=== PATIENT | female | born 1990 | race Caucasian/White ===

== ENCOUNTER 2017-11-28 08:08 | Emergency (ER) | payer SELFPAY ==
[2017-11-28 09:26] LABS: ABSOLUTE EOSINOPHILS # (AUTO) 0.1 10^3/uL (0.0-0.6); ABSOLUTE LYMPHOCYTES (AUTO) 2.1 10^3/uL (0.5-4.7); ABSOLUTE MONOCYTES (AUTO) 0.5 10^3/uL (0.1-1.4); ABSOLUTE NEUT (AUTO) 8.6 10^3/uL (1.7-8.2); BASOPHILS % (AUTO) 0.2 % (0-2); EOSINOPHILS % (AUTO) 0.7 % (0-6); HEMATOCRIT 37.9 % (36.0-47.0); HEMOGLOBIN 12.9 g/dL (12.0-15.5); LYMPHOCYTES % (AUTO) 18.4 % (13-45); MEAN CORPUSCULAR HEMOGLOBIN 30.8 pg (27.0-33.4); MEAN CORPUSCULAR VOLUME 91 fl (80-97); MONOCYTES % (AUTO) 4.8 % (3-13); PLATELET COUNT 203 10^3/uL (150-450); RED BLOOD COUNT 4.19 10^6/uL (3.72-5.28); RED CELL DISTRIBUTION WIDTH 13.3 % (11.5-14.0); SEGMENTED NEUTROPHILS % (AUTO) 75.9 % (42-78); TOTAL CELLS COUNTED % (AUTO) 100 %; WHITE BLOOD COUNT 11.3 10^3/uL (4.0-10.5)
[2017-11-28 09:31] LABS: INTERNATIONAL RATION (INR) 1.03; PROTHROMBIN TIME 14.1 SEC (11.4-15.4)
[2017-11-28 09:41] LABS: ALANINE AMINOTRANSFERASE 34 U/L (9-52); ALBUMIN 4.4 g/dL (3.5-5.0); ALKALINE PHOSPHATASE 50 U/L (38-126); ANION GAP 9 (5-19); ASPARTATE AMINO TRANSFERASE 24 U/L (14-36); BILIRUBIN,DIRECT 0.4 mg/dL (0.0-0.4); BILIRUBIN,TOTAL 0.4 mg/dL (0.2-1.3); BLOOD UREA NITROGEN 10 mg/dL (7-20); CALCIUM 9.6 mg/dL (8.4-10.2); CARBON DIOXIDE 25 mmol/L (22-30); CHLORIDE 107 mmol/L (98-107); GLUCOSE 85 mg/dL (75-110); POTASSIUM 3.9 mmol/L (3.6-5.0); SODIUM 141.4 mmol/L (137-145); TOTAL PROTEIN 7.1 g/dL (6.3-8.2)
[2017-11-28] MEDS ORDERED: ONDANSETRON HCL INJ/PF 4 MG/2 ML SDV IV ONE (09:45)
[2017-11-28] MEDS ORDERED: MORPHINE SULFATE 10 MG/ML INJ IV ONE (09:45)
--- NOTE | 2017-11-28 09:45 | ER Document Report ---
ED GI/ - General Mode of Arrival: Ambulatory Information source: Patient TRAVEL OUTSIDE OF THE [place] IN LAST 30 DAYS: No <NATI ENCINAS - Last Filed: 11/28/17 10:05> <LOUIS HOUSE - Last Filed: 11/28/17 12:34> - General Chief Complaint: Vag Bleeding, +preg <12wks Stated Complaint: VAGINAL BLEEDING Time Seen by Provider: 11/28/17 09:34 Notes: 27-year-old female that presents to the emergency department today with complaints of lower abdominal cramping that began this morning. Patient states her last menstrual period was on September 15 and she is normally very regular. Patient states she has 5 children at home and has had multiple miscarriages in the past. Patient states today when giving a urine sample she passed a large clot. Patient states the blood was brown yesterday but today it is red. Patient states her pain today is similar to when she had an ectopic which is questionable as she states that the ectopic was treated by a D&C. ( NATI ENCINAS) - Related Data Allergies/Adverse Reactions: butorphanol tartrate [From Stadol] Allergy (Severe, Verified 11/28/17 08:09) SOB,itch mushrooms Allergy (Intermediate, Uncoded 11/28/17 08:09) itch/red hives Past Medical History - General Information source: Patient Last Menstrual Period: 09/15/17 - Social History Smoking Status: Current Every Day Smoker Cigarette use (# per day): Yes Frequency of alcohol use: None Drug Abuse: None Family History: Reviewed & Not Pertinent Patient has suicidal ideation: No Patient has homicidal ideation: No - Past Medical History Cardiac Medical History: Reports: Hx Heart Murmur - poss yrs ago with prev preg Neurological Medical History: Reports: Hx Migraine Renal/ Medical History: Reports: Hx Ectopic , Hx Ovarian Cysts - in past GI Medical History: Reports: Hx Gastroesophageal Reflux Disease Musculoskeletal Medical History: Reports Hx Musculoskeletal Trauma Psychiatric Medical History: Reports: Hx Anxiety, Hx Post Traumatic Stress Disorder Past Surgical History: Reports: Hx Section - Immunizations Immunizations up to date: Yes Hx Diphtheria, Pertussis, Tetanus Vaccination: Yes <NATI ENCINAS - Last Filed: 11/28/17 10:05> Review of Systems - Review of Systems Constitutional: No symptoms reported EENT: No symptoms reported Cardiovascular: No symptoms reported Respiratory: No symptoms reported Gastrointestinal: See HPI, Abdominal pain - cramping Genitourinary: No symptoms reported Female Genitourinary: See HPI, Musculoskeletal: No symptoms reported Skin: No symptoms reported Hematologic/Lymphatic: No symptoms reported Neurological/Psychological: No symptoms reported -: Yes All other systems reviewed and negative <NATI ENCINAS - Last Filed: 11/28/17 10:05> Physical Exam <NATI ENCINAS - Last Filed: 11/28/17 10:05> <LOUIS HOUSE - Last Filed: 11/28/17 12:34> - Vital signs Vitals: Temp Pulse Resp BP Pulse Ox 98.1 F 77 16 116/67 99 11/28/17 08:12 11/28/17 08:12 11/28/17 08:12 11/28/17 08:12 11/28/17 08:12 - Notes Notes: Physical Exam: General: Alert, appears uncomfortable. HEENT: Normocephalic. Atraumatic. PERRL. Extraocular movements intact. Oropharynx clear. Neck: Supple. Non-tender. Respiratory: No respiratory distress. Coarse breath sounds with diffuse rhonchi consistent with heavy smoking history. Cardiovascular: Regular rate and rhythm. Abdominal: LLQ and suprapubic tenderness with palpation with positive guarding. No distension. Normal Bowel Sounds. Back: Non-tender. No deformity or step off. Extremities: Moves all four extremities. Upper extremities: Normal inspection. Normal ROM. Lower extremities: Normal inspection. No edema. Normal ROM. Neurological: Normal cognition. AAOx4. Normal speech. Psychological: Normal affect. Normal Mood. Skin: Warm. Dry. Normal color. ([place]) Course - Laboratory Result Diagrams: 11/28/17 09:02 11/28/17 09:02 <ANGELITA ENCINASON - Last Filed: 11/28/17 10:05> - Laboratory Result Diagrams: 11/28/17 09:02 11/28/17 09:02 - Diagnostic Test Radiology reviewed: Reports reviewed - Ultrasound shows a 6 week 2 day IUP in the lower uterine segment without cardiac activity, suspicious for miscarriage in progress. <L[facility] HOUSE - Last Filed: 11/28/17 12:34> - Vital Signs Vital signs: Temp Pulse Resp BP Pulse Ox 98.1 F 77 17 101/67 97 11/28/17 08:12 11/28/17 08:12 11/28/17 10:46 11/28/17 10:46 11/28/17 10:46 - Laboratory Laboratory results interpreted by me: 11/28/17 11/28/17 09:02 09:02 WBC 11.3 H Absolute Neutrophils 8.6 H Beta HCG, Quant 5914.60 H Discharge <NATI ENCINAS - Last Filed: 11/28/17 10:05> <[facility] - Last Filed: 11/28/17 12:34> - Discharge Clinical Impression: Inevitable complete miscarriage without complication Condition: Stable Disposition: HOME, SELF-CARE Additional Instructions: Miscarriage Impending You have been evaluated for a possible miscarriage. At this time, it appears that the fetus has stopped growing. A miscarriage occurs when the fetus is abnormal. There is no medicine or treatment to prevent it. If bleeding is not severe, and if your pain can be controlled with medicine, you could complete the miscarriage at home. If that's not practical, or if the miscarriage doesn't progress spontaneously, we will arrange for a D&C procedure. You should rest in bed. Do not douche or have sex for at least a week, or until OK'd by the doctor. If you believe you've passed the fetus, collect it in a zip-lock plastic bag. Be sure to follow up with your doctor. Call the doctor or return for re- examination if there is an increase in bleeding or cramping, extreme weakness, fainting, fever, or passage of tissue. Drink plenty of fluids and rest. Take ibuprofen for pain. Take the Tylenol with hydrocodone tablets that are dispensed for the pain if ibuprofen does not adequately control your pain. Call [facility] in the morning for a follow-up appointment. RETURN TO THE EMERGENCY ROOM IF ANY NEW OR WORSENING SYMPTOMS. Referrals: [facility] [Provider Group] - Follow up tomorrow Reginaibe Attestation: 11/28/17 12:31 I personally performed the services described in the documentation, reviewed and edited the documentation which was dictated to the scribe in my presence, and it accurately records my words and actions. (LOU[facility] HOUSE) Scribe Documentation - Scribe Written by Maria Del Carmen:: Maria Del Carmen Hooker, 11/28/2017 0958 acting as scribe for :: José <NATI ENCINAS - Last Filed: 11/28/17 10:05>
--- NOTE | 2017-11-28 11:59 | RADIOLOGY REPORT (SQ) ---
EXAM DESCRIPTION: U/S OB TRANSVAGINAL W/O DOP COMPLETED DATE/TIME: 11/28/2017 11:38 am REASON FOR STUDY: Severe pelvic cramps, BRB w/ clots COMPARISON: None. TECHNIQUE: Transvaginal static and realtime grayscale images acquired of the pelvis. Additional hossein cted spectral and color Doppler images recorded. All images stored on PACs. [facility], [place],[address]. CLINICAL DATES: 10 week 4 day. LIMITATIONS: None. FINDINGS: FETUS: Gestational sac located in the lower uterine segment. ULTRASOUND EGA: 6 week 2 day. ULTRASOUND INGRIS: 07/22/2018. CRL: 0.49 cm. FHR: No cardiac activity detected. QUINCY: Adequate amount. SUBCHORIONIC BLEED: No. SIZE OF BLEED: Not applicable. UTERUS: No masses. No anomalies. CERVICAL LENGTH: 1.9 cm. Closed. RIGHT ADNEXA: Normal ovary with normal vascular flow. No adnexal free fluid. No adnexal masses. LEFT ADNEXA: Normal ovary with normal vascular flow. No adnexal free fluid. 2.1 cm cyst. FREE FLUID: None. OTHER: No other significant finding. IMPRESSION: ABNORMAL LOCATION OF THE GESTATIONAL SAC IN THE LOWER UTERINE SEGMENT. NO CARDIAC ACTIVITY DETECTED. FINDINGS ARE HIGHLY SUSPICIOUS FOR DEMISE AND IN PROGRESS. EGA 6 WEEK 2 DAY. Trimester of : First - 0 to 13 weeks. TECHNICAL DOCUMENTATION: JOB ID: [id number] [employer]- All Rights Reserved rev-07/23 Reading location - IP/workstation name: [email or web address]
[2017-11-28] MEDS ORDERED: HYDROCODONE/ACETAMINOPHEN 5-325 MG (6 TAB/ER DISP) PO PRN (12:32)
[2017-11-28 12:35] LABS: APPEARANCE,URINE SLIGHTLY-CLOUDY; BILIRUBIN,URINE NEGATIVE (NEGATIVE); COLOR,URINE YELLOW; GLUCOSE, URINE NEGATIVE (NEGATIVE); KETONES,URINE NEGATIVE (NEGATIVE); LEUKOCYTE ESTERASE,URINE NEGATIVE (NEGATIVE); NITRITE,URINE NEGATIVE (NEGATIVE); PROTEIN,URINE NEGATIVE (NEGATIVE); UROBILINOGEN,URINE NEGATIVE mg/dL (<2.0)
[2017-11-28 12:56] VITALS: BP 98/60
== END 2017-11-28 13:00 | disposition home or self-care (01) ==
LOC: ER 08:08
DX: O20.9 Hemorrhage in early pregnancy, unspecified (principal); O26.891 Other specified pregnancy related conditions, first trimester; R10.30 Lower abdominal pain, unspecified; R10.814 Left lower quadrant abdominal tenderness; O99.331 Smoking (tobacco) complicating pregnancy, first trimester; F17.210 Nicotine dependence, cigarettes, uncomplicated; Z3A.01 Less than 8 weeks gestation of pregnancy; Z87.59 Personal history of other complications of pregnancy, childbirth and the puerperium; Z88.5 Allergy status to narcotic agent; Z91.018 Allergy to other foods
CPT/HCPCS: 99284; 96374; 96375; 86900; 86901; 36415; 86850; 84702; 85025; 85610; 81025; 80053; 81001; 76817; J2270; J2405

== ENCOUNTER 2018-09-14 17:06 | Outpatient (CLI) | payer MEDICAID ==
[2018-09-14 17:57] LABS: AMORPHOUS SEDIMENT,URINE TRACE /HPF; APPEARANCE,URINE SLIGHTLY-CLOUDY; BILIRUBIN,URINE NEGATIVE (NEGATIVE); COLOR,URINE YELLOW; GLUCOSE, URINE NEGATIVE (NEGATIVE); KETONES,URINE NEGATIVE (NEGATIVE); LEUKOCYTE ESTERASE,URINE TRACE (NEGATIVE); NITRITE,URINE NEGATIVE (NEGATIVE); PROTEIN,URINE NEGATIVE (NEGATIVE); URINE SPECIFIC GRAVITY 1.006; UROBILINOGEN,URINE NEGATIVE mg/dL (<2.0)
[2018-09-14 18:11] LABS: URINE AMPHETAMINES SCREEN NEGATIVE; URINE BARBITURATES SCREEN NEGATIVE; URINE BENZODIAZEPINES SCREEN NEGATIVE; URINE COCAINE SCREEN NEGATIVE; URINE MARIJUANA (THC) SCREEN NEGATIVE; URINE METHADONE SCREEN NEGATIVE; URINE PHENCYCLIDINE SCREEN NEGATIVE
[2018-09-14] MEDS ORDERED: HYDROXYZINE PAMOATE 50 MG CAPSULE PO ONE (18:38)
[2018-09-14] MEDS ORDERED: HYDROXYZINE PAMOATE 50 MG CAPSULE ONE (18:39)
--- NOTE | 2018-09-14 20:10 | Non Stress Test Report ---
Non Stress Test Datetime Report Generated by CPN: 09/14/2018 20:10 DEMOGRAPHIC EGA NST: 33.1 INDICATION Indication for Study: Other Indication for Study: Ordered by Provider Indication for Study (NST) Other: per protocol VITAL SIGNS Temperature - NST: 98.0 Pulse - NST: 97 RESP - NST: 18 NBPSYS NST: 101 NBPDIA NST: 65 MONITORING Monitor Explained: Monitor Explained; Test Explained; Patient Verbalized Understanding Monitor Explained: Monitor Explained; Test Explained; Patient Verbalized Understanding Time on Monitor: 09/14/2018 17:26 Time off Monitor: 09/14/2018 20:03 NST Duration: 157 NST INTERVENTIONS NST Interventions: None NST Interventions: None Physician Notified NST: Dr. Quintero Physician Notified NST: JGenaro mackay, CNM BABY A: [id number] BABY A Movement : Present Movement : Present Contraction Frequency : Irregular Contraction Frequency : none FHR Baseline : 145 FHR Baseline : 135 Accelerations : 15X15 Accelerations : 15X15 Decelerations : None Decelerations : None Variability : Moderate 6-25bpm Variability : Moderate 6-25bpm NST Review: Meets Criteria for Reactive NST NST Review and Verified By : ERYN Carranza NST Results: Reactive NST REPORT Report Trigger: Send Report
== END 2018-09-14 20:23 | disposition home or self-care (01) ==
LOC: LC 17:06
PROVIDERS: ATTEND Student in an Organized Health Care Education/Training Program
PROC: 4A1HXCZ Monitoring of Products of Conception, Cardiac Rate, External Approach (ICD-10-PCS; principal; 2018-09-14)
DX: O47.03 False labor before 37 completed weeks of gestation, third trimester (principal); Z3A.33 33 weeks gestation of pregnancy
CPT/HCPCS: 59025; 81001; 80307; J3490

== ENCOUNTER 2018-10-12 22:51 | Outpatient (CLI) | payer MEDICAID ==
[2018-10-12 23:27] LABS: APPEARANCE,URINE SLIGHTLY-CLOUDY; BILIRUBIN,URINE NEGATIVE (NEGATIVE); COLOR,URINE STRAW; GLUCOSE, URINE NEGATIVE (NEGATIVE); KETONES,URINE NEGATIVE (NEGATIVE); LEUKOCYTE ESTERASE,URINE NEGATIVE (NEGATIVE); NITRITE,URINE NEGATIVE (NEGATIVE); PROTEIN,URINE NEGATIVE (NEGATIVE); URINE SPECIFIC GRAVITY 1.004; UROBILINOGEN,URINE NEGATIVE mg/dL (<2.0)
[2018-10-12 23:46] LABS: URINE AMPHETAMINES SCREEN NEGATIVE; URINE BARBITURATES SCREEN NEGATIVE; URINE BENZODIAZEPINES SCREEN NEGATIVE; URINE COCAINE SCREEN NEGATIVE; URINE MARIJUANA (THC) SCREEN NEGATIVE; URINE METHADONE SCREEN NEGATIVE; URINE PHENCYCLIDINE SCREEN NEGATIVE
--- NOTE | 2018-10-13 00:22 | Non Stress Test Report ---
Non Stress Test Datetime Report Generated by CPN: 10/13/2018 00:22 DEMOGRAPHIC EGA NST: 37.1 INDICATION Indication for Study: Ordered by Provider MONITORING Monitor Explained: Monitor Explained; Test Explained; Patient Verbalized Understanding Time on Monitor: 10/12/2018 23:07 Time off Monitor: 10/13/2018 00:11 NST Duration: 64 NST INTERVENTIONS NST Interventions: PO Hydration Physician Notified NST: Dr. Younger BABY A: [id number] BABY A Movement : Present Contraction Frequency : none FHR Baseline : 130 Accelerations : 15X15 Decelerations : None Variability : Moderate 6-25bpm NST Review: Meets Criteria for Reactive NST NST Review and Verified By : Constance Woodall RN NST Results: Reactive NST REPORT Report Trigger: Send Report
== END 2018-10-13 00:20 | disposition home or self-care (01) ==
LOC: LC 22:51
PROVIDERS: ATTEND Obstetrics & Gynecology
PROC: 4A1HXCZ Monitoring of Products of Conception, Cardiac Rate, External Approach (ICD-10-PCS; principal; 2018-10-12)
DX: O47.1 False labor at or after 37 completed weeks of gestation (principal); Z3A.37 37 weeks gestation of pregnancy
CPT/HCPCS: 80307; 81005; 94760

== ENCOUNTER 2018-10-24 07:57 | Inpatient (IN) | payer MEDICAID ==
[2018-10-21 10:42] LABS: ABSOLUTE BASOPHILS # (AUTO) 0.1 10^3/uL (0.0-0.2); ABSOLUTE EOSINOPHILS # (AUTO) 0.1 10^3/uL (0.0-0.6); ABSOLUTE LYMPHOCYTES (AUTO) 2.9 10^3/uL (0.5-4.7); ABSOLUTE MONOCYTES (AUTO) 0.8 10^3/uL (0.1-1.4); ABSOLUTE NEUT (AUTO) 12.8 10^3/uL (1.7-8.2); BASOPHILS % (AUTO) 0.3 % (0-2); EOSINOPHILS % (AUTO) 0.4 % (0-6); HEMATOCRIT 33.1 % (36.0-47.0); HEMOGLOBIN 11.1 g/dL (12.0-15.5); LYMPHOCYTES % (AUTO) 17.2 % (13-45); MEAN CORPUSCULAR HEMOGLOBIN 30.9 pg (27.0-33.4); MEAN CORPUSCULAR HGB CONC 33.6 g/dL (32.0-36.0); MEAN CORPUSCULAR VOLUME 92 fl (80-97); PLATELET COUNT 292 10^3/uL (150-450); RED BLOOD COUNT 3.61 10^6/uL (3.72-5.28); RED CELL DISTRIBUTION WIDTH 13.8 % (11.5-14.0); SEGMENTED NEUTROPHILS % (AUTO) 77.1 % (42-78); TOTAL CELLS COUNTED % (AUTO) 100 %; WHITE BLOOD COUNT 16.7 10^3/uL (4.0-10.5)
[2018-10-21 11:01] LABS: APPEARANCE,URINE SLIGHTLY-CLOUDY; BILIRUBIN,URINE NEGATIVE (NEGATIVE); COLOR,URINE YELLOW; GLUCOSE, URINE NEGATIVE (NEGATIVE); KETONES,URINE NEGATIVE (NEGATIVE); LEUKOCYTE ESTERASE,URINE NEGATIVE (NEGATIVE); NITRITE,URINE NEGATIVE (NEGATIVE); PROTEIN,URINE NEGATIVE (NEGATIVE); URINE SPECIFIC GRAVITY 1.004; UROBILINOGEN,URINE NEGATIVE mg/dL (<2.0)
[2018-10-21 11:42] LABS: URINE AMPHETAMINES SCREEN NEGATIVE; URINE BARBITURATES SCREEN NEGATIVE; URINE BENZODIAZEPINES SCREEN NEGATIVE; URINE COCAINE SCREEN NEGATIVE; URINE MARIJUANA (THC) SCREEN NEGATIVE; URINE METHADONE SCREEN NEGATIVE; URINE PHENCYCLIDINE SCREEN NEGATIVE
[2018-10-23 15:10] LABS: HEMATOCRIT 31.7 % (36.0-47.0); HEMOGLOBIN 10.9 g/dL (12.0-15.5); MEAN CORPUSCULAR HEMOGLOBIN 31.5 pg (27.0-33.4); MEAN CORPUSCULAR HGB CONC 34.4 g/dL (32.0-36.0); MEAN CORPUSCULAR VOLUME 92 fl (80-97); PLATELET COUNT 293 10^3/uL (150-450); RED BLOOD COUNT 3.47 10^6/uL (3.72-5.28); RED CELL DISTRIBUTION WIDTH 13.8 % (11.5-14.0); WHITE BLOOD COUNT 14.5 10^3/uL (4.0-10.5)
[~2018-10-24 07:57] MED LIST: CEFAZOLIN 1 GM/D5W RTU 1 GM/50 ML RTUPB IV PRN; RINGERS SOLUTION,LACTATED 1,000 ML IV PRN
[2018-10-24] MEDS ORDERED: CEFAZOLIN INJ 1 GM VIAL ONE (11:31)
[2018-10-24] MEDS ORDERED: OXYTOCIN 10 UNIT/ML VIAL ONE (11:31)
[2018-10-24] MEDS ORDERED: FENTANYL CITRATE INJ/PF 100 MCG/2 ML AMPUL ONE (11:31)
[2018-10-24] MEDS ORDERED: KETOROLAC TROMETHAMINE INJ/PF 30 MG/1 ML SDV ONE (11:31)
[2018-10-24] MEDS ORDERED: ACETAMINOPHEN 1,000 MG/100 ML RTUPB IV ONE (11:32)
[2018-10-24] MEDS ORDERED: MORPHINE SULFATE 10 MG/ML INJ IV PRN (12:08)
[2018-10-24] MEDS ORDERED: PROMETHAZINE HCL INJ 25 MG/1 ML VIAL IV PRN ×2 (12:08→12:54)
[2018-10-24] MEDS ORDERED: FENTANYL CITRATE INJ/PF 100 MCG/2 ML AMPUL IV PRN ×3 (12:08)
[2018-10-24] MEDS ORDERED: MEPERIDINE HCL/PF INJ 25 MG/1 ML DISP.SYRIN IV PRN (12:08)
[2018-10-24] MEDS ORDERED: OXYCODONE-ACETAMINOPHEN 5-325 MG TABLET PO PRN ×3 (12:08→12:54)
[2018-10-24] MEDS ORDERED: DIPHENHYDRAMINE HCL 50 MG/ML VIAL IV PRN (12:08)
[2018-10-24] MEDS ORDERED: HYDROMORPHONE HCL INJ/PF 2 MG/ML AMPULE IV PRN (12:54)
[2018-10-24] MEDS ORDERED: ACETAMINOPHEN 325 MG TABLET PO PRN (12:54)
[2018-10-24] MEDS ORDERED: SIMETHICONE 80 MG TAB.CHEW PO PRN (12:54)
[2018-10-24] MEDS ORDERED: ACETAMINOPHEN 1,000 MG/100 ML RTUPB IV PRN (12:54)
[2018-10-24] MEDS ORDERED: DIPH/PERTUSS(ACELL)/TETANUS VAC/PF 0.5 ML SYR (>=10YO) IM PRN (12:54)
[2018-10-24] MEDS ORDERED: OXYTOCIN/NORMAL SALINE 20 UNIT/1,000 ML RTUINJ IV PRN (12:54)
[2018-10-24] MEDS ORDERED: RINGERS SOLUTION,LACTATED 1,000 ML IV PRN (12:54)
--- NOTE | 2018-10-24 13:02 | PDOC DELIVERY SUMMARY ---
Delivery Summary - Maternal Hx : VIIII Hx Para: III Hx # Term Pregnancies: 3 Number of Living Children: 3 INGRIS: 11/01/18 Gestational Age: 39+2 Risk Factors: Previous Ruptured Membranes: AROM Time of Rupture: 12:12 Fluids: Clear - Delivery Presentation: Vertex Heart Rate Monitoring: Done Pre-Operatively Uterine Contraction Monitoring: External Support Person Present: Yes Location: OR : Scheduled, Repeat Placenta: Within Normal Limits Placenta Description: Normal-appearing Number of Vessels (Cord): 3 Nuchal Cord: No Delivery of Placenta Date: 10/24/18 Delivery of Placenta Time: 12:14 Estimated Blood Loss: 400 mL Delivery Quantitative Blood Loss (QBL): 510 - Medications Type of Anesthesia:: Spinal - Infant Assess and Care Baby 1 Delivery of Infant Date: 10/24/18 Delivery of Infant Time: 12:13 at 1 minute: 9 at 5 minutes: 9 Preprinted Number On Band: [id number] Infant Skin to Skin: Yes Skin to Skin (Mins): 5 To Nursery At: 12:20 Mode of Transport: Bassinet Infant Delivery Weight: 2,390 Infant Delivery Length: 16.5 in - Delivery Personnel Nursery RN: JORGE LUIS MD: ELIAN WELDON
--- NOTE | 2018-10-24 13:24 | Operative Report ---
Operative Report DATE OF SURGERY: 10/24/18 PREOPERATIVE DIAGNOSIS: 1. Intrauterine at 39-2/7 weeks. 2. Previo us section x3. 3. GBS negative. 4. Gestational diabetes (diet- controlled). 5. Intrauterine growth restriction. 6. Abnormal alpha- fetoprotein. 7. Rh+. 8. Rubella immune POSTOPERATIVE DIAGNOSIS: Same plus lack of visible rectus abdominal muscles OPERATION: Repeat section SURGEON: ELIAN BROCK ANESTHESIA: Spinal TISSUE REMOVED OR ALTERED: Placenta COMPLICATIONS: None ESTIMATED BLOOD LOSS: 400 ml INTRAOPERATIVE FINDINGS: Female fetus with a cephalic presentation; Apgars 9 at 1, 9 at 5 with a weight of 5 pounds 5 ounces; normal-appearing uterus, bilateral tubes and ovaries; lack of abdominal rectus muscles PROCEDURE: The patient was taken to the operating room where spinal anesthesia was obtained and found to be adequate. She was then prepped and draped in the normal sterile fashion and placed in the dorsal supine position with a leftward tilt. A Pfannenstiel skin incision was then made and carried through to the und erlying layers of the fascia with the scalpel. The fascia was incised in the midline and the incision extended laterally with the Martinez scissors. The superior aspect of the fascial incision was then grasped with Flavia clamps and elevated. There was no underlying rectus muscles to dissect off. Attention was then turned to the inferior aspect of the fascial incision which in a similar fashion was grasped, tented up with Flavia clamps, and again, there were no rectus muscles to dissected off. The peritoneum had a hole in it and the uterus was immediately visible. The incision was then extended superiorly and inferiorly with good visualization of the bladder. The bladder blade was inserted and the vesicouterine peritoneum identified grasped with [place] pickups and entered sharply with the Metzenbaum scissors. This incision was then extended laterally with the Metzenbaum scissors and a bladder flap created digitally. The bladder blade was then reinserted and the lower uterine segment incised in a transverse fashion with the scalpel. The uterine incision was then extended bluntly and with the bandage scissors. The bladder blade was removed and the infant's head was delivered from cephalic presentation atraumatically. The cord was doubly clamped and cut. The was handed off to waiting pediatricians. The placenta was then delivered manually and the uterus exteriorized and cleared of all clots and debris. The uterine incision was then repaired with 0 Vicryl in a running locked fashion. 0-Chromic was used to obtain hemostasis via imbrication of the initial layer. The uterus was returned to the patient's abdomen and Interceed was placed overlying the uterine incision, as well as a piece placed vertically on the anterior surface of the uterus, to prevent adhesions. The gutters were cleared of all clots and debris. The peritoneum was closed in a running fashion, with 2-0 Vicryl. All operative sites were noted to be hemostatic. The fascia was reapproximated with 0 Vicryl in a running fashion from each lateral edge to the midline. The subcutaneous fat layer was then closed in an interrupted fashion with 3-0 vicryl. The skin was closed with 4-0 Monocryl in a running, subcuticular fashion. The patient tolerated the procedure well. Sponge, lap, needle and instrument counts are correct x 2. 2 g of Ancef were given prior to skin incision. The patient was taken to the recovery area awake and in stable condition.
[2018-10-24] MEDS ORDERED: MORPHINE SULFATE 10 MG/ML INJ ONE (14:09)
[2018-10-24] MEDS ORDERED: OXYTOCIN/NORMAL SALINE 20 UNIT/1,000 ML RTUINJ ONE (14:13)
[2018-10-24] MEDS: OXYCODONE-ACETAMINOPHEN 5-325 MG TABLET PO PRN ×2 (15:12→19:41)
[2018-10-24] MEDS: KETOROLAC TROMETHAMINE INJ/PF 30 MG/1 ML SDV IV SCH ×2 (15:33→22:34)
[2018-10-24] MEDS: DOCUSATE SODIUM 100 MG CAPSULE PO SCH (17:19)
[2018-10-24] MEDS: IBUPROFEN 800 MG TABLET PO SCH ×2 (19:41→23:37)
[2018-10-25] MEDS: OXYCODONE-ACETAMINOPHEN 5-325 MG TABLET PO PRN ×4 (04:42→21:10)
[2018-10-25] MEDS: IBUPROFEN 800 MG TABLET PO SCH ×4 (06:00→23:37)
[2018-10-25] MEDS: KETOROLAC TROMETHAMINE INJ/PF 30 MG/1 ML SDV IV SCH (06:31)
[2018-10-25 06:46] LABS: HEMATOCRIT 29.9 % (36.0-47.0); MEAN CORPUSCULAR HEMOGLOBIN 31.3 pg (27.0-33.4); MEAN CORPUSCULAR HGB CONC 33.6 g/dL (32.0-36.0); MEAN CORPUSCULAR VOLUME 93 fl (80-97); PLATELET COUNT 260 10^3/uL (150-450); RED BLOOD COUNT 3.21 10^6/uL (3.72-5.28); RED CELL DISTRIBUTION WIDTH 13.7 % (11.5-14.0); WHITE BLOOD COUNT 17.3 10^3/uL (4.0-10.5)
[2018-10-25] MEDS ORDERED: IRON SUCROSE COMPLEX INJ/PF 100 MG/5 ML SDV IV ONE (09:00)
[2018-10-25] MEDS: DOCUSATE SODIUM 100 MG CAPSULE PO SCH ×2 (09:09→17:06)
[2018-10-25] MEDS: PRENATAL VITAMIN W DHA CAPSULE PO SCH (09:09)
--- NOTE | 2018-10-25 09:55 | PDOC PROGRESS REPORT ---
Subjective-OB Progress Note for:: 10/25/18 Subjective: Doing ok, tired, eating well, getting iron infusions, voiding, OOB, Physical Exam (OB) Vital Signs: Temp Pulse Resp BP Pulse Ox 98.7 F 73 18 106/62 98 10/25/18 08:00 10/25/18 07:13 10/25/18 08:00 10/25/18 08:00 10/25/18 08:00 Intake & Output 10/24/18 10/25/18 10/26/18 06:59 06:59 06:59 Output Total 2175 Balance -2175 Weight 57.15 kg - PIH/Pre-Eclampsia DTR's: 1 + Clonus: Negative Headache: Absent Epigastric Pain: No Visual Changes: No - Dressing Removed: No Incision: Dressing Closure Type: op site - Lochia Lochia Amount: Scant < 10 ml Lochia Color: Rubra/Red - Abdomen Description: Soft, Round Hernia Present: No Fundal Description: Firm, Midline Fundal Height: u/u - u/2 Objective-Diagnostic Laboratory: 10/25/18 06:06 10/25/18 06:06 WBC 17.3 H RBC 3.21 L Hgb 10.0 L Hct 29.9 L MCV 93 MCH 31.3 MCHC 33.6 RDW 13.7 Plt Count 260 Assessment and Plan(PN) - Assessment and Plan (1) Status post repeat low transverse section Is this a current diagnosis for this admission?: Yes (2) Anemia due to acute blood loss Is this a current diagnosis for this admission?: Yes - Time Spent with Patient Time with patient: Less than 15 minutes Medications reviewed and adjusted accordingly: Yes - Disposition Anticipated Discharge: Home Within: within 48 hours
[2018-10-26] MEDS: IBUPROFEN 800 MG TABLET PO SCH ×2 (06:26→12:42)
[2018-10-26] MEDS: DOCUSATE SODIUM 100 MG CAPSULE PO SCH (10:13)
[2018-10-26] MEDS: PRENATAL VITAMIN W DHA CAPSULE PO SCH (10:13)
[2018-10-26] MEDS: OXYCODONE-ACETAMINOPHEN 5-325 MG TABLET PO PRN (10:15)
--- NOTE | 2018-10-26 11:05 | PDOC DISCHARGE SUMMARY ---
Final Diagnosis Discharge Date: 10/26/18 - Final Diagnosis (1) Status post repeat low transverse section Is this a current diagnosis for this admission?: Yes (2) Anemia due to acute blood loss Is this a current diagnosis for this admission?: Yes Discharge Data - Discharge Medication Prescriptions: Oxycodone HCl/Acetaminophen [Percocet 5-325 mg Tablet] 2 tab PO Q4HP PRN #20 tablet PRN Reason: For Pain Scale 3-5 Ibuprofen [Motrin 800 mg Tablet] 800 mg PO Q6HP PRN #30 tablet PRN Reason: Abdominal Cramping Home Medications: Vit/Iron Fum/Folic AC [ Tablet] 1 tab PO DAILY 09/11/15 Ferrous Sulfate [Laura-Time] 1 tab PO BID #0 10/26/18 Ibuprofen [Motrin 800 mg Tablet] 800 mg PO Q6HP PRN #30 tablet 10/26/18 Oxycodone HCl/Acetaminophen [Percocet 5-325 mg Tablet] 2 tab PO Q4HP PRN #20 tablet 10/26/18 Reason(s) for Admission: Ceasarean Section-Repeat Procedures: Ultrasound Intrapartum Procedure(s): : Low Cervical, Transverse - Diagnosis Test Laboratory: Temp Pulse Resp BP Pulse Ox 97.7 F 77 17 103/62 97 10/26/18 07:49 10/26/18 07:49 10/26/18 07:49 10/26/18 07:49 10/26/18 07:49 10/21/18 10/21/18 10/23/18 10:00 10:05 15:03 RBC 3.61 L 3.47 L Hgb 11.1 L 10.9 L Hct 33.1 L 31.7 L Urine Opiates Screen NEGATIVE 10/25/18 06:06 RBC 3.21 L Hgb 10.0 L Hct 29.9 L Urine Opiates Screen - Discharge information/Instructions Discharge Activity: Activity As Tolerated, Balance Activity w/Rest, No Lifting Over 10 Pounds, Pelvic Rest, No tub bath, Walk Frequently Discharge Diet: As Tolerated, Regular Disposition: HOME, SELF-CARE Follow [facility] with: [facility] in: 1, Weeks
[2018-10-26 12:06] VITALS: BP 123/71
== END 2018-10-26 13:00 | disposition home or self-care (01) | DRG 788 ==
LOC: 2S 07:57
PROVIDERS: ADMIT Obstetrics & Gynecology; ATTEND Obstetrics & Gynecology
PROC: 10D00Z1 Extraction of Products of Conception, Low, Open Approach (ICD-10-PCS; principal; 2018-10-24 11:15)
DX: O36.5930 Maternal care for other known or suspected poor fetal growth, third trimester, not applicable or unspecified (principal); O34.219 Maternal care for unspecified type scar from previous cesarean delivery; O24.420 Gestational diabetes mellitus in childbirth, diet controlled; Z3A.39 39 weeks gestation of pregnancy; Z37.0 Single live birth; O34.211 Maternal care for low transverse scar from previous cesarean delivery; Z62.810 Personal history of physical and sexual abuse in childhood; O99.334 Smoking (tobacco) complicating childbirth; F17.210 Nicotine dependence, cigarettes, uncomplicated; O99.02 Anemia complicating childbirth; D64.9 Anemia, unspecified
CPT/HCPCS: 1961; 36415; 80307; 81001; 82962; 85025; 85027; 86850; 86900; 86901; 94799; C1765; J0131; J0690; J1756; J1885; J2270; J2590; J3010; J3490; J7120